=== PATIENT | female | born 1980 | race Caucasian/White ===

== ENCOUNTER 2024-11-01 15:52 | Emergency (ER) | payer BC, SELFPAY ==
--- NOTE | ~2024-11-01 | CT_ITS ---
EXAMINATION: CT FACIAL BONES WITHOUT CONTRAST CT CERVICAL SPINE WITHOUT CONTRAST CLINICAL INFORMATION: Fall. COMPARISON: CT head from 11/01/2024. TECHNIQUE: Helical noncontrast CT imaging was acquired through the cervical spine and facial bones and source images were reviewed along with axial reconstructions and sagittal and coronal MPRs. This CT examination was performed using dose optimization techniques as appropriate, variously including the following: *Automated exposure control. *Adjustment of mA and/or kV according to patient size (this includes techniques or standardized protocols for targeted exams where dose is matched to indication/reason for exam; i.e. extremities or head). *Use of iterative reconstruction technique. DLP: 496 mGy-cm FINDINGS: Maxillofacial Bones: Mild subgaleal hematoma along the frontal bone, measuring up to 0.3 cm in depth. Mild edema/hematoma in the left premaxillary soft tissues. No discrete collection or radiopaque foreign body. No evidence of maxillofacial bone fractures. The zygomatic arches remain intact. No nasal bone fracture. The nasal septum remains midline. No evidence of mandibular or maxillary fracture. The mandibular condyles remain well-seated in their respective temporal articular grooves. Normal appearance of the intraconal and extraconal fat. No evidence of traumatic injury to the extraocular musculature or globes. The mastoid air cells and visualized paranasal sinuses are clear. No layering fluid collections. Cervical Spine: The atlantooccipital and atlantoaxial articulations remain well aligned. Straightening of the normal cervical lordosis. Otherwise, there is anatomic alignment of the vertebral bodies and posterior elements. No evidence of acute fracture or subluxation. The vertebral body heights and disc spaces are maintained. There is no prevertebral soft tissue swelling. There is a 1.1 cm hypoattenuating lesion in the right thyroid lobe (no follow-up imaging recommended based on current guidelines at the time of examination) . The remaining cervical soft tissues are within normal limits. The lung apices demonstrate no abnormalities. CT/CT cervical spine wo IV con IMPRESSION: 1. No evidence of acute fracture or traumatic subluxation of the cervical spine. 2. No evidence of acute fracture of the maxillofacial bones. 3. Mild frontal scalp and left premaxillary soft tissue edema/hematoma. No discrete collection or radiopaque foreign body. Electronically signed by: Jose Mitchell DO 11/01/2024 06:33 PM EST RP
--- NOTE | ~2024-11-01 | XR_ITS ---
EXAMINATION: XR KNEE, LEFT CLINICAL INFORMATION: pain COMPARISON: None available. TECHNIQUE: Four views of the left knee. FINDINGS: No fracture or joint effusion. Alignment is anatomic. Joint spaces are maintained. No abnormal soft tissue calcification. XR/XR knee LT 3V IMPRESSION: Unremarkable plain radiographs of the left knee. Electronically signed by: Sagar Daniel MD 11/01/2024 04:42 PM [facility]
--- NOTE | ~2024-11-01 | CT_ITS ---
EXAMINATION: CT HEAD WITHOUT CONTRAST CLINICAL INFORMATION: Fall. Pain COMPARISON: None available. TECHNIQUE: Contiguous axial imaging was performed from the skull base to vertex without intravenous administration of contrast. This CT examination was performed using dose optimization techniques as appropriate, variously including the following: *Automated exposure control *Adjustment of mA and/or kV according to patient size (this includes techniques or standardized protocols for targeted exams where dose is matched to indication/reason for exam; i.e. extremities or head) *Use of iterative reconstruction technique DLP: 646 mGy-cm FINDINGS: No intra or extra-axial fluid collection, hemorrhage, mass, or mass effect. Calvarium intact. CT/CT head/brain wo IV con IMPRESSION: No acute intracranial pathology. Electronically signed by: Jim Mayorga MD 11/01/2024 05:37 PM [facility]
[2024-11-01 15:57] VITALS: BP 157/91; PULSE 80; RESP 16; TEMP 37.2; O2SAT 99; BMI 20.3
--- NOTE | 2024-11-01 16:04 | ED_ITS ---
HPI - General Adult General Chief complaint: Fall Stated complaint: Fell , bruised face Time Seen by Provider: 11/01/24 18:20 Source: patient Limitations: no limitations History of Present Illness ED Provider: Rea Sweeney PA-C HPI narrative: 44-year-old otherwise healthy female presents after fall. Patient states she was running, she tripped and fell, landing on her face and left knee. Patient was ambulatory after the event, there was no loss of consciousness and the patient is not on blood thinners. Related Data Allergies Allergy/AdvReac Type Severity Reaction Status Date / Time No Known Allergies Allergy Verified 11/01/24 16:04 Review of Systems Review of Systems: Yes all other systems are reviewed and are negative Constitutional: Constitutional: Denies fatigue, Denies fever(s) and Denies headache(s) Eyes: Eyes: Denies change in vision and Denies eye pain ENT: Reports facial pain, Denies headache(s) and Denies nasal discharge Cardiovascular: Cardiovascular: Denies chest pain and Denies dyspnea Respiratory: Respiratory: Denies dyspnea Gastrointestinal: Gastrointestinal: Denies abdominal pain and Denies nausea Musculoskeletal: Musculoskeletal: Denies arthralgias and Denies joint swelling Neurologic: Denies headache(s) Endocrine: Endocrine: Denies fatigue [facility] Past Medical History Attestation statement: The following information was validated with the patient. Social History Social History Advance Directives: No Advance Directives Information Provided: No Do you have a plan to hurt others: No Plan Physical Exam ED Vital Signs: Vital Signs - 24 hr 11/01/24 15:57 11/01/24 18:19 Temperature 99 F 98.3 F Pulse Rate 80 73 Respiratory Rate 16 18 Blood Pressure 157/91 H 160/84 H Pulse Oximetry 99 97 Oxygen Delivery Method Room Air Room Air BMI result Body Mass Index 20.3 Const Other: Alert, overall well-appearing swelling and ecchymosis noted over left side of face primarily over the cheek Orientation/consciousness: patient oriented x3 HENMT Other: No bleeding from either naris no deformity of the nose, Eyes Other: Extraocular eye movements intact, no pain with extraocular eye movements. developing periorbital ecchymosis on the left Resp Other: Nonlabored respirations Cardio Other: Normal peripheral perfusion Skin Other: Warm dry no rash Neuro General: patient oriented x3, gait normal, no focal motor deficits and CN's II- XI intact bilaterally Extrem Other: Full flexion-extension of the left knee no deformity Psych Other: Calm cooperative Course Course Course Narrative: RME, this is a rapid medical exam performed by Andrei Porras please refer to primary provider for complete H&P- 44-year-old female presents for evaluation after a trip and fall. This happened about 10 hours ago. She was running outside when she woke up and fell on the pavement. She struck her face and knee 1st. She has a small linear laceration to the left center forehead. Otherwise mostly abrasions. She has an abrasion and contusion inferior to the left orbit, no step-offs or deformities. She has an abrasion to her chin. His some abrasions and ecchymoses to bilateral hands and wrists. She has no tenderness with palpation of the hands and wrists. She has good range of motion to the hands and wrists without deformity. The patient does have some tenderness to the left knee. Plan for CT scans and x-rays. Her tetanus will be updated Medical Decision Making Medical Decision Making MDM Narrative: Extraocular eye movements intact, no pain with extraocular eye movements. No bleeding from either naris no deformity of the nose, developing periorbital ecchymosis on the left No chronic issues History: Per patient I have considered the following differential diagnoses: Intracranial hemorrhage, facial contusion, orbital fracture, ocular entrapment condyle fracture, dislocation Plan: X-ray and CT scan of the brain ordered from triage, everything negative. I do not have concern for entrapment, patient has no pain with extraocular movements and she has full range of motion. I have independently reviewed the following tests: X-ray knee: CT brain: CT/CT head/brain wo IV con IMPRESSION: No acute intracranial pathology. Electronically signed by: Jim Mayorga MD 11/01/2024 05:37 PM [facility] Discharge Plan Discharge Clinical Impression: Contusion of face, Periorbital ecchymosis of left eye Patient Disposition: Home, Self-Care Instructions: Facial Contusion (ED), Black Eye (ED) Additional Instructions: X-ray of the knee was normal, the CT scan of your brain was normal as well. See home care instructions. Follow up with your primary care provider as needed. Print Language: Japanese
[2024-11-01 18:19] VITALS: BP 160/84; PULSE 73; RESP 18; TEMP 36.8; O2SAT 97
[2024-11-01] MEDS: Diphth,Pertus(ACell),Tet Adult 0.5 ML SYRINGE IM (18:36)
[2024-11-01 18:46] VITALS: BP 160/84; PULSE 73; RESP 18; TEMP 36.8; O2SAT 97
== END 2024-11-01 18:48 | disposition home or self-care (01) ==
PROVIDERS: Emergency Provider Emergency Medicine Emergency Medical Services; PCP Family Medicine
DX: S00.12XA Contusion of left eyelid and periocular area, initial encounter (principal); S01.81XA Laceration without foreign body of other part of head, initial encounter; S60.512A Abrasion of left hand, initial encounter; S60.511A Abrasion of right hand, initial encounter; S60.812A Abrasion of left wrist, initial encounter; S60.811A Abrasion of right wrist, initial encounter; R51.9 Headache, unspecified; M54.2 Cervicalgia; W01.10XA Fall on same level from slipping, tripping and stumbling with subsequent striking against unspecified object, initial encounter; Y93.89 Activity, other specified; Y92.89 Other specified places as the place of occurrence of the external cause; Y99.8 Other external cause status; Z23 Encounter for immunization; Z79.899 Other long term (current) drug therapy
CPT/HCPCS: 70450; 70486; 72125; 73562; 90471; 90715; 96360; 99282; 99284